=== PATIENT | male | born 1950 | race Caucasian/White ===

== ENCOUNTER → 2017-08-02 | Outpatient (CLI) | payer OTHER | END | disposition home or self-care (01) | LOC: SHCH 10:00 | PROVIDERS: ATTEND Internal Medicine Cardiovascular Disease | DX: I51.7 Cardiomegaly (principal); I20.9 Angina pectoris, unspecified | CPT/HCPCS: 93306 ==

== ENCOUNTER → 2017-08-10 | Outpatient (CLI) | payer OTHER ==
[~2017-08-10] MED LIST: REGADENOSON 0.4 MG/5 ML PF SYG IVP ONE
== END | disposition home or self-care (01) ==
LOC: SHCH 08:06
PROVIDERS: ATTEND Internal Medicine Cardiovascular Disease
DX: I20.9 Angina pectoris, unspecified (principal); G45.9 Transient cerebral ischemic attack, unspecified
CPT/HCPCS: 78452; 93017; 96374; A9500 ×2; J2785

== ENCOUNTER → 2017-08-25 | Outpatient (CLI) | payer OTHER | END | disposition home or self-care (01) | LOC: SHCH 12:48 | PROVIDERS: ATTEND Internal Medicine Cardiovascular Disease | DX: R09.89 Other specified symptoms and signs involving the circulatory and respiratory systems (principal) | CPT/HCPCS: 93880 ==

== ENCOUNTER 2018-01-13 10:58 | Emergency (ER) | payer OTHER ==
[2018-01-13] MEDS ORDERED: HYDROCODONE/ACETAMINOPHEN 10/325 MG TAB ONE (11:22)
[2018-01-13 11:49] LABS: BASOPHILS % (AUTO) 0.3 % (0.0-5.0); EOSINOPHILS % (AUTO) 2.5 % (0.0-8.0); HEMATOCRIT 44.2 % (42-54); LYMPHOCYTES % (AUTO) 29.6 % (21.0-51.0); MEAN CORPUSCULAR HEMOGLOBIN 30.1 pg (27.0-33.0); MEAN CORPUSCULAR HGB CONC 33.5 g/dL (32.0-36.0); MEAN CORPUSCULAR VOLUME 89.7 fL (79-99); MONOCYTES % (AUTO) 8.5 % (3.0-13.0); NEUTROPHILS % (AUTO) 59.1 % (40.0-77.0); NUCLEATED RED BLOOD CELLS 0.1 % (0.0-0.19); PLATELET COUNT (AUTO) 205 K/uL (130-400); RED BLOOD CELL COUNT(AUTO) 4.92 MIL/uL (4.50-6.20); WHITE BLOOD COUNT (AUTO) 11.8 K/uL (4.8-10.8)
[2018-01-13 12:16] LABS: CREATININE 1.2 mg/dL (0.5-1.5); POTASSIUM 4.2 mmol/L (3.5-5.1)
[2018-01-13 12:19] LABS: INR 1.01 (0.85-1.15); PROTHROMBIN TIME 10.6 SEC (9.6-11.6)
== END 2018-01-13 13:59 | disposition home or self-care (01) ==
LOC: EDH 10:58
DX: S63.502A Unspecified sprain of left wrist, initial encounter (principal); S00.83XA Contusion of other part of head, initial encounter; E11.40 Type 2 diabetes mellitus with diabetic neuropathy, unspecified; E78.5 Hyperlipidemia, unspecified; Z88.8 Allergy status to other drugs, medicaments and biological substances; Z79.899 Other long term (current) drug therapy; Z90.49 Acquired absence of other specified parts of digestive tract; W18.39XA Other fall on same level, initial encounter; Y93.89 Activity, other specified; Y92.89 Other specified places as the place of occurrence of the external cause; Y99.8 Other external cause status
CPT/HCPCS: 36415; 70450; 73090; 73130; 80048; 85025; 85610; 85730; 93005

== ENCOUNTER 2024-07-07 19:14 | Emergency (ER) | payer OTHER ==
[~2024-07-07 19:14] MED LIST changes: +ACAR25TA2 PO; +ALBU5SOL19 IH; +ATOR40TA71 PO; +AZIT250T PO; +DONE-53 PO; +DULO60CA64 PO; +EMPA25TA PO; +FINA5TAB41 PO; +FLUT1BLS9 IH; +LEVO50CA4 PO; +LISI2.5T13 PO; +METF-446 PO; +OSEL75 PO; -REGADENOSON 0.4 MG/5 ML PF SYG IVP ONE; +TAMS-1 PO
[2024-07-07] MEDS ORDERED: AMIOdarone 150MG VIAL IV ONE (19:15)
--- NOTE | 2024-07-07 19:39 | ERN ---
General Chief Complaint: CPR/Full Arrest Stated Complaint: CARDIAC ARREST Time Seen by MD: 19:33 History of Present Illness Initial Comments Patient arrived with full cardiac arrest. Airway established in the field forget with the ENT called at that I do not think it was a secure airway. In either case respiratory therapist was bagging the patient through the airway and and able to maintain good oxygen saturations. CPR was initiated immediately ACLS protocol initiated immediately please see the code sheet for details. We ended up giving the patient multiple doses of epinephrine, bicarb, amiodarone, and shocked him 3 times. After approximately 20 minutes of chest compressions in the ED and 40 minutes of total down time, including the time at the scene, the patient is still had asystole on a monitor. Checking with the resuscitation team we agreed we had done all aspects of the ACLS protocol and that further resuscitation efforts would be futile. Resuscitation stopped. Allergies: Coded Allergies: nitrous oxide (Unverified Allergy, Severe, 08/08/17) hypertension Home Meds Active Scripts Azithromycin (Zithromax) 250 Mg Tablet, 500 MG PO Q24H, #2 TAB Prov:ANISHA ALVAREZ 03/03/24 Oseltamivir Phosphate (Tamiflu) 75 Mg Cap, 75 MG PO BID for 2 Days, #4 CAP 0 Refills Prov:ANISHA ALVAREZ 03/03/24 Reported Medications Fluticasone Propion/Salmeterol (Wixela 250-50 Inhub) 250 Mcg-50 Mcg/Dose Blst.w.dev, 1 EACH IH BID 03/01/24 Albuterol Sulfate (Albuterol Sulfate) 5 Mg/Ml Solution, 5 MG IH BID, ML 03/01/24 Levothyroxine Sodium (Levothyroxine) 50 Mcg Capsule, 1 CAP PO DAILY for 30 Days, #30 CAP 0 Refills 03/01/24 Acarbose (Acarbose) 25 Mg Tablet, 25 MG PO TID, TAB 03/01/24 Donepezil HCl (Donepezil HCl) 10 Mg Tab.rapdis, 1 TAB PO DAILY for 30 Days, #30 TAB 0 Refills 03/01/24 Metformin HCl (Metformin HCl) 1,000 Mg Tablet, 1 TAB PO BID for 30 Days, #60 TAB 0 Refills 03/01/24 Empagliflozin (Jardiance) 25 Mg Tablet, 1 TAB PO DAILY for 30 Days, #30 TAB 0 Refills 03/01/24 Lisinopril (Lisinopril) 2.5 Mg Tablet, 1 TAB PO DAILY for 30 Days, #30 TAB 0 Refills 03/01/24 Finasteride (Finasteride) 5 Mg Tablet, 1 TAB PO DAILY for 30 Days, #30 TAB 0 Refills 03/01/24 Duloxetine HCl (Duloxetine HCl) 60 Mg Capsule.dr, 1 CAP PO DAILY for 30 Days, #30 CAP 0 Refills 03/01/24 Atorvastatin Calcium (Atorvastatin Calcium) 40 Mg Tablet, 1 TAB PO DAILY for 30 Days, #30 TAB 0 Refills 03/01/24 Tamsulosin HCl (Flomax) 0.4 Mg Cap.er.24h, 1 CAP PO DAILY for 30 Days, #30 CAP 0 Refills 03/01/24 Past Medical History Past Medical History: Diabetes-Type II, Hypothyroid, Other Medical History Other: CHRONIC BRONCHITIS Past Surgical History: Appendectomy, Cholecystectomy, Other Surgical History Other: BILATER ING HERNIA REPAIR, ENDO/COLONOSCOPY ROS Dictation Unable to obtain Physical Exam Physical Exam Dictation Patient in obvious extremis carotid pulse on palpable two out entire time in a emergency rooms. MDM Patient most likely arrived in asystole and remained in a asystole throughout the code. One point maybe there was fine VFib and therefore we did give amiodarone and shocked patient two or 3 times. But the patient really I think was in asystole the entire time. Chest compressions were adequate throughout the entire code. DX & DISP Disposition: Departure Impression: Primary Impression: Cardiac asystole Condition: Stable Referrals: CESARIO YOUNG MD (PCP) TASHA CARVALHO MD Jul 07, 2024 19:39
--- NOTE | 2024-07-07 19:45 | NUR ---
EX , DAUGHTER AND MOTHER NOTIFIED BY DR CARVALHO, ESCORTED TO ROOM 8 TO BE WITH PATIENT
--- NOTE | 2024-07-07 19:47 | NUR ---
[facility] CONTACTED, SPOKE WITH JOHN COLLIER, REFERENCE # [id number]
--- NOTE | 2024-07-07 20:36 | NUR ---
SPOKE WITH [facility], PATIENT'S DAUGHTER WILL BE CONTACTED ABOUT TISSUE DONATION
== END 2024-07-07 22:24 ==
LOC: EDH 19:14
DX: I46.9 Cardiac arrest, cause unspecified (principal); E11.9 Type 2 diabetes mellitus without complications; E03.9 Hypothyroidism, unspecified; Z79.51 Long term (current) use of inhaled steroids; Z79.84 Long term (current) use of oral hypoglycemic drugs; Z79.890 Hormone replacement therapy; Z79.899 Other long term (current) drug therapy; Z90.49 Acquired absence of other specified parts of digestive tract; Z98.890 Other specified postprocedural states
CPT/HCPCS: 99285; 92950; J0171; J3490 ×2; J0282